=== PATIENT | male | born 1955 | race Caucasian/White ===

== ENCOUNTER 2021-04-25 00:15 | Inpatient (IN) | payer MEDICARE, OTHER ==
[~2021-04-25] VITALS: Ht 167.6 cm; Wt 95.3 kg
[~2021-04-25 00:15] MED LIST: ASPIRIN EC81 MG PO; FEOSOL325 MG PO; LOPRESSOR25 MG PO; NASONEX17 GM; PRAVACHOL20 MG PO; XARELTO10 MG PO; ZIJA PO
[2021-04-25 00:42] LABS: BASOPHIL 0.3 % (0-2); EOSINOPHIL 0.8 % (0-7); HCT 46.3 % (42.0-52.0); HGB 15.4 g/dl (13.2-18.0); LYMPHOCYTE 16.6 % (15-48); MCH 30.9 pg (25.0-31.0); MCHC 33.3 g/dL (32.0-36.0); MONOCYTE 6.9 % (0-12); NRBC 0; PLT 312 K/uL (150-400); RBC 4.98 M/uL (4.70-6.00); RDW 13.2 % (11.5-14.0); WBC 14.6 K/uL (4.0-10.5)
[2021-04-25 01:18] LABS: ALBUMIN 4.1 g/dL (3.4-5.0); ALKALINE PHOSHATASE 121 U/L (46-116); ALT 271 U/L (16-63); AST 230 U/L (15-37); BILIRUBIN - TOTAL 1.5 mg/dL (0.2-1.0); BUN 16 mg/dL (7-18); BUN/CREAT RATIO (CALC) 16.2 RATIO; CHLORIDE 103 mmol/L (98-107); CO2 (BICARBONATE) 25 mmol/L (21-32); CREATININE 0.99 mg/dL (0.67-1.17); GLOBULIN (CALCULATION) 3.3 g/dL; GLUCOSE 236 mg/dL (74-106); LIPASE >2250 U/L (73-393); POTASSIUM 4.3 mmol/L (3.5-5.1); TOTAL PROTEIN 7.4 g/dL (6.4-8.2)
[2021-04-25 04:17] LABS: BILIRUBIN NEGATIVE (NEGATIVE); BLOOD NEGATIVE Ery/uL (NEGATIVE); CLARITY CLEAR (CLEAR); COLOR YELLOW (YELLOW); GLUCOSE (U) NORMAL (NORMAL); LEUKOCYTES NEGATIVE Leu/uL (NEGATIVE); NITRITE NEGATIVE (NEGATIVE); PROTEIN NEGATIVE (NEGATIVE); SPECIFIC GRAVITY 1.025 (1.001-1.030); UROBILINOGEN 0.2 mg/dL (0.2-1.0); pH 5.5 (5.0-9.0)
[2021-04-25] MEDS ORDERED: ZESTRIL5 MG PO (15:33)
[2021-04-25] MEDS ORDERED: ASPIRIN EC81 MG PO (15:33)
[2021-04-25] MEDS ORDERED: ATORVASTATIN CA20 MG PO (15:33)
[2021-04-25] MEDS ORDERED: NASOCORT INH (15:33)
[2021-04-26 06:56] LABS: BASOPHIL 0.3 % (0-2); EOSINOPHIL 0.7 % (0-7); HCT 42.8 % (42.0-52.0); HGB 13.8 g/dl (13.2-18.0); LYMPHOCYTE 10.2 % (15-48); MCH 30.7 pg (25.0-31.0); MCHC 32.2 g/dL (32.0-36.0); MCV 95.3 fL (78.0-100.0); MONOCYTE 7.1 % (0-12); MPV 9.4 fL (6.0-9.5); NEUTROPHIL 81.2 % (41-80); NRBC 0; PLT 241 K/uL (150-400); RBC 4.49 M/uL (4.70-6.00); RDW 13.8 % (11.5-14.0)
[2021-04-26 07:16] LABS: ALBUMIN 3.1 g/dL (3.4-5.0); BILIRUBIN - TOTAL 1.1 mg/dL (0.2-1.0); BUN/CREAT RATIO (CALC) 13.3 RATIO; CREATININE 0.83 mg/dL (0.67-1.17); MAGNESIUM 1.7 mg/dL (1.8-2.4); TOTAL PROTEIN 6.1 g/dL (6.4-8.2)
[2021-04-27 06:58] LABS: BASOPHIL 0.3 % (0-2); EOSINOPHIL 1.7 % (0-7); HCT 38.8 % (42.0-52.0); HGB 12.5 g/dl (13.2-18.0); LYMPHOCYTE 10.9 % (15-48); MCH 30.9 pg (25.0-31.0); MCHC 32.2 g/dL (32.0-36.0); MCV 95.8 fL (78.0-100.0); MONOCYTE 7.1 % (0-12); MPV 9.3 fL (6.0-9.5); NEUTROPHIL 79.7 % (41-80); NRBC 0; PLT 223 K/uL (150-400); RBC 4.05 M/uL (4.70-6.00); RDW 13.5 % (11.5-14.0)
[2021-04-27 07:40] LABS: ALBUMIN 2.8 g/dL (3.4-5.0); BILIRUBIN - TOTAL 1.9 mg/dL (0.2-1.0); BUN/CREAT RATIO (CALC) 10.7 RATIO; CREATININE 0.84 mg/dL (0.67-1.17); GLOBULIN (CALCULATION) 3.2 g/dL; POTASSIUM 3.6 mmol/L (3.5-5.1)
--- NOTE | 2021-04-28 03:11 | NUR ---
0200 PATIENT WITH AUTIBLE WHEEZING NOTED. LUNGS SCATTERED FAINT WHEEZES, COUGHING AND CLEARING NO PRODUCTION NOTED. SCALLOP CUTTER NOTFIED IVF DECREASED TO 75CC/HR. CURRENTLY UP USING ISB. CALL LIGHT WITHIN REACH.
[2021-04-28 06:49] LABS: BASOPHIL 0.4 % (0-2); EOSINOPHIL 1.2 % (0-7); HCT 39.7 % (42.0-52.0); HGB 12.9 g/dl (13.2-18.0); LYMPHOCYTE 12.5 % (15-48); MCH 31.2 pg (25.0-31.0); MCHC 32.5 g/dL (32.0-36.0); MCV 96.1 fL (78.0-100.0); MONOCYTE 6.5 % (0-12); MPV 8.9 fL (6.0-9.5); NEUTROPHIL 78.9 % (41-80); NRBC 0; PLT 249 K/uL (150-400); RBC 4.13 M/uL (4.70-6.00); RDW 13.2 % (11.5-14.0); WBC 11.3 K/uL (4.0-10.5)
[2021-04-28 07:11] LABS: ALBUMIN 2.7 g/dL (3.4-5.0); BILIRUBIN - TOTAL 1.7 mg/dL (0.2-1.0); BUN/CREAT RATIO (CALC) 11.4 RATIO; CREATININE 0.79 mg/dL (0.67-1.17); GLOBULIN (CALCULATION) 3.8 g/dL; POTASSIUM 3.9 mmol/L (3.5-5.1); TOTAL PROTEIN 6.5 g/dL (6.4-8.2)
[2021-04-29 06:34] LABS: BASOPHIL 0.3 % (0-2); EOSINOPHIL 1.4 % (0-7); HCT 36.5 % (42.0-52.0); HGB 11.9 g/dl (13.2-18.0); LYMPHOCYTE 8.4 % (15-48); MCHC 32.6 g/dL (32.0-36.0); MCV 95.1 fL (78.0-100.0); MONOCYTE 8.6 % (0-12); MPV 8.9 fL (6.0-9.5); NEUTROPHIL 80.6 % (41-80); NRBC 0; PLT 244 K/uL (150-400); RBC 3.84 M/uL (4.70-6.00); RDW 13.4 % (11.5-14.0); WBC 10.3 K/uL (4.0-10.5)
[2021-04-29 07:00] LABS: ALBUMIN 2.5 g/dL (3.4-5.0); BILIRUBIN - TOTAL 1.5 mg/dL (0.2-1.0); BUN/CREAT RATIO (CALC) 14.1 RATIO; CREATININE 0.78 mg/dL (0.67-1.17); GLOBULIN (CALCULATION) 3.7 g/dL; POTASSIUM 3.6 mmol/L (3.5-5.1); TOTAL PROTEIN 6.2 g/dL (6.4-8.2)
--- NOTE | 2021-04-29 10:54 | NUR ---
04/29 Mr. Wilknison lives at home with his spouse. 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 He also enjoys building [employer]. - Mr. Wilkinson reports to be able to meet his financial obligations. - He is currently using 02. - Will monitor for 02 needs.
[2021-04-30 06:20] LABS: BASOPHIL 0.6 % (0-2); EOSINOPHIL 3.1 % (0-7); HCT 35.3 % (42.0-52.0); HGB 11.7 g/dl (13.2-18.0); LYMPHOCYTE 11.1 % (15-48); MCHC 33.1 g/dL (32.0-36.0); MCV 93.6 fL (78.0-100.0); MONOCYTE 7.4 % (0-12); NEUTROPHIL 77.4 % (41-80); NRBC 0; PLT 247 K/uL (150-400); RBC 3.77 M/uL (4.70-6.00); RDW 13.4 % (11.5-14.0); WBC 10.6 K/uL (4.0-10.5)
[2021-04-30 06:49] LABS: IRON % SATURATION 17.3 %SAT (20-50)
[2021-04-30 07:12] LABS: ALBUMIN 2.4 g/dL (3.4-5.0); BILIRUBIN - DIRECT 1.3 mg/dL (0.00-0.20); GLOBULIN (CALCULATION) 3.8 g/dL; TOTAL PROTEIN 6.2 g/dL (6.4-8.2)
[2021-05-01 06:22] LABS: BASOPHIL 0.7 % (0-2); HGB 11.6 g/dl (13.2-18.0); LYMPHOCYTE 10.1 % (15-48); MCH 30.5 pg (25.0-31.0); MCHC 33.1 g/dL (32.0-36.0); MCV 92.1 fL (78.0-100.0); MONOCYTE 7.6 % (0-12); MPV 8.7 fL (6.0-9.5); NEUTROPHIL 77.1 % (41-80); NRBC 0; PLT 240 K/uL (150-400); RDW 13.5 % (11.5-14.0); WBC 10.4 K/uL (4.0-10.5)
[2021-05-01 06:41] LABS: ALBUMIN 2.3 g/dL (3.4-5.0); BILIRUBIN - TOTAL 1.4 mg/dL (0.2-1.0); BUN/CREAT RATIO (CALC) 10.6 RATIO; CREATININE 0.66 mg/dL (0.67-1.17); GLOBULIN (CALCULATION) 3.6 g/dL; POTASSIUM 2.8 mmol/L (3.5-5.1); TOTAL PROTEIN 5.9 g/dL (6.4-8.2)
== END 2021-05-01 16:24 | disposition other institution (70) | DRG 439 ==
LOC: FER 00:15 → FMS 13:08
PROVIDERS: Family Medicine; Internal Medicine; ADMIT Allergy & Immunology Allergy
DX: K85.10 Biliary acute pancreatitis without necrosis or infection (principal); K56.3 Gallstone ileus; D50.9 Iron deficiency anemia, unspecified; K80.50 Calculus of bile duct without cholangitis or cholecystitis without obstruction; Z20.822 Contact with and (suspected) exposure to COVID-19; R73.03 Prediabetes; I10 Essential (primary) hypertension; I25.10 Atherosclerotic heart disease of native coronary artery without angina pectoris; K21.9 Gastro-esophageal reflux disease without esophagitis; M19.90 Unspecified osteoarthritis, unspecified site; Z96.651 Presence of right artificial knee joint; Z95.1 Presence of aortocoronary bypass graft; Z79.899 Other long term (current) drug therapy; Z98.890 Other specified postprocedural states
CPT/HCPCS: 36415; 74018; 74181; 76705; 80053; 80061; 80076; 81003; 82607; 83036; 83540; 83550; 83605; 83690; 83735; 84145; 84484; 85025; 93005; 94010; C9113; J1170; J1650; J1885; J2405; J2550; J2916; J3480; J7030; J7120; Q9967; U0002